=== PATIENT | female | born 1980 | race African-American/Black ===

== ENCOUNTER 2016-10-27 18:07 | Emergency (ER) | payer SELFPAY ==
[~2016-10-27] VITALS: Ht 167.6 cm; Wt 97.5 kg
[2016-10-27] MEDS ORDERED: METH-37 PO (18:35)
[2016-10-27] MEDS ORDERED: IBUP-1007 PO (18:35)
[2016-10-27] MEDS ORDERED: TRAM1TAB4 PO (18:35)
--- NOTE | 2016-10-27 18:35 | PHYS DOC ---
Adult General Chief Complaint Chief Complaint: BACK PAIN OR INJURY HPI HPI Patient is a 36 year old male presents to the emergency department with exacerbation of her chronic back pain. She states she recently moved from [place] and is out of her [employer]. She is seeking a refill. Review of Systems Review of Systems Constitutional: Denies fever or chills [] Eyes: Denies change in visual acuity, redness, or eye pain [] HENT: Denies nasal congestion or sore throat [] Respiratory: Denies cough or shortness of breath [] Cardiovascular: No additional information not addressed in HPI [] GI: Denies abdominal pain, nausea, vomiting, bloody stools or diarrhea [] : Denies dysuria or hematuria [] Musculoskeletal: Denies back pain or joint pain [] Integument: Denies rash or skin lesions [] Neurologic: Denies headache, focal weakness or sensory changes [] Endocrine: Denies polyuria or polydipsia [] Physical Exam Physical Exam Constitutional: Well developed, well nourished, no acute distress, non-toxic appearance. [] HENT: Normocephalic, atraumatic, bilateral external ears normal, oropharynx moist, no oral exudates, nose normal. [] Eyes: PERRLA, EOMI, conjunctiva normal, no discharge. [] Neck: Normal range of motion, no tenderness, supple, no stridor. [] Cardiovascular:Heart rate regular rhythm, no murmur [] Lungs & Thorax: Bilateral breath sounds clear to auscultation [] Abdomen: Bowel sounds normal, soft, no tenderness, no masses, no pulsatile masses. [] Skin: Warm, dry, no erythema, no rash. [] Back: Diffuse tenderness in the lumbar region without midline tenderness, no CVA tenderness. [] Extremities: No tenderness, no cyanosis, no clubbing, ROM intact, no edema. [] Neurologic: Alert and oriented X 3, normal motor function, normal sensory function, no focal deficits noted. [] Psychologic: Affect normal, judgement normal, mood normal. [] EKG EKG [] Radiology/Procedures Radiology/Procedures [] Course & Med Decision Making Course & Med Decision Making Pertinent Labs and Imaging studies reviewed. (See chart for details) [] Dragon Disclaimer Dragon Disclaimer This electronic medical record was generated, in whole or in part, using a voice recognition dictation system. Departure Departure Impression: Primary Impression: Chronic back pain Disposition: 01 HOME, SELF-CARE Condition: STABLE Referrals: primary care provider list Patient Instructions: Chronic Back Pain Scripts Tramadol Hcl/Acetaminophen (TRAMADOL-ACETAMINOPHN 37.5-325) 1 Each Tablet 1 TAB PO TID Y for PAIN, #20 TAB Prov: CHIQUIS HARRIS APRN 10/27/16 Ibuprofen (IBUPROFEN) 600 Mg Tablet 600 MG PO PRN Q6HRS Y for INFLAMMATION, #20 TAB Prov: CHIQUIS HARRIS APRN 10/27/16 Methocarbamol (ROBAXIN) 500 Mg Tablet 1 TAB PO BID, #20 TAB Prov: CHIQUIS HARRIS APRN 10/27/16 CHIQUIS HARRIS APRN October 27, 2016 18:35
[2016-10-27 18:46] VITALS: BP 135/79
== END 2016-10-27 18:50 | disposition home or self-care (01) ==
LOC: ER 18:07
DX: G89.29 Other chronic pain (principal); M54.5 Low back pain
CPT/HCPCS: 99283